=== PATIENT | male | born 1950 | race African-American/Black ===

== ENCOUNTER 2018-12-24 10:01 | Emergency (ER) | payer SELFPAY ==
[~2018-12-24] VITALS: Ht 182.9 cm; Wt 85.7 kg
[2018-12-24 10:08] VITALS: BP_SYST 108
--- NOTE | 2018-12-24 10:25 | NUR ---
Patient to ER bed 7 to gown for evaluation. Side rails up. Report given to Abhijit AUSTIN.
--- NOTE | 2018-12-24 10:32 | NUR ---
ER Dr. duval at bedside examining patient.
--- NOTE | 2018-12-24 10:36 | NUR ---
PATIENT CAME IN COMPLAINING OF LEFT ARM NUMBNESS THAT STARTED THIS MORNING AT 0700. PATIENT ABLE TO MOVE ARM AND LEGS BUT RIGHT LEG WEAKER. PATIENT NOT COMPLAINING OF PAIN OR SOB. PATIENT CRYING IN BED BECAUSE HE THINKS HE IS GOING TO . PATIENT ALERT AND ORIENTED X4.
--- NOTE | 2018-12-24 10:45 | NUR ---
# 20 gauge angiocath placed to LEFT FA. Use of asceptic technique. Opsite placed over site. Blood return noted. Blood for lab drawn from site. Flushed with 10 cc of normal saline. No evidence of infiltration noted. Patient tolerated well.
--- NOTE | 2018-12-24 11:01 | NUR ---
PATIENT LEAVING TO CT VIA GURNEY IN STABLE CONDITION.
[2018-12-24 11:06] LABS: BASOPHILS % (AUTO) 0.3 % (0.0-2.0); EOSINOPHILS # (AUTO) 0.1 K/uL (0.0-0.4); EOSINOPHILS % (AUTO) 2.7 % (0.0-4.0); HEMATOCRIT 40.8 % (36-54); HEMOGLOBIN 13.5 g/dL (14.0-18.0); LYMPHOCYTES # (AUTO) 1.8 K/uL (1.0-5.5); LYMPHOCYTES % (AUTO) 37.2 % (20.5-51.5); MEAN CORPUSCULAR HEMOGLOBIN 26 pg (27-31); MEAN CORPUSCULAR HGB CONC 33 % (32-36); MEAN CORPUSCULAR VOLUME 78 fL (79.0-98.0); MONOCYTES # (AUTO) 0.5 K/uL (0.0-1.0); MONOCYTES % (AUTO) 9.9 % (1.7-9.3); NEUTROPHILS # (AUTO) 2.4 K/uL (1.8-7.7); NEUTROPHILS % (AUTO) 49.9 % (40.0-70.0); PLATELET COUNT (AUTO) 207 K/uL (130-430); RED BLOOD CELL COUNT(AUTO) 5.24 MIL/uL (4.2-6.2); RED CELL DISTRIBUTION WIDTH 16.1 % (9.0-15.0); WHITE BLOOD COUNT (AUTO) 4.8 K/uL (4.8-10.8)
[2018-12-24 11:17] LABS: CALCIUM 8.6 mg/dL (8.4-11.0); CHLORIDE 105 mmol/L (98-107); CREATININE 1.13 mg/dL (0.55-1.30); GFR AFRICAN AMERICAN 83 mL/min (>90); GLUCOSE 111 mg/dL (70-99); POTASSIUM 3.6 mmol/L (3.5-5.1); SODIUM SERUM 138 mmol/L (136-145); UREA NITROGEN, BLOOD 16 mg/dL (8-21)
[2018-12-24 11:22] LABS: ALANINE AMINOTRANSFERASE 20 U/L (12-78); ALBUMIN 3.4 g/dL (3.4-4.8); ASPARTATE AMINOTRANSFERASE 17 U/L (10-37); PROTHROMBIN TIME 9.8 SECS (9.5-12.5); TOTAL BILIRUBIN 0.5 mg/dL (0.0-1.0)
[2018-12-24 11:27] LABS: ANION GAP < 3 (5-15)
--- NOTE | 2018-12-24 11:34 | NUR ---
PATIENT BACK FROM RADIOLOGY IN STABLE CONDITION.
[2018-12-24] MEDS ORDERED: ASPIRIN 81 MG TAB.CHEW PO ONE (12:45)
--- NOTE | 2018-12-24 13:01 | NUR ---
PATIENT RESTING IN BED WITH NO SIGNS OF DISTRESS. PATIENT GIVEN ASPIRIN. PATIENT TOLERATED WELL. PATIENT HAS NO FURHTER NEEDS AT MOMENT. WILL CONTINUE TO MONITOR.
--- NOTE | 2018-12-24 14:32 | NUR ---
PATIENT RESTING IN BED WITH NO SIGNS OF DISTRESS. UPDATED PATIENT ON PLAN OF CARE. PATIENT HAS NO FURTHER NEEDS AT MOMENT. WILL CONTINUE TO MONITOR.
--- NOTE | 2018-12-24 14:53 | NUR ---
SPOKE TO JOSUE AT [facility] AND REPORT WAS GIVEN. [phone]
--- NOTE | 2018-12-24 15:12 | NUR ---
ENDORSED CARE TO NORMAN MARIEE.
--- NOTE | 2018-12-24 15:20 | NUR ---
pt states refusal to be transported to [facility] to recieve higher level of care. md notified
--- NOTE | 2018-12-24 15:25 | NUR ---
ED bedside explaining risks and benefits of refusing medical care and transfer, signing out against medical advice. pt states he would like to leave against medical advice and refuses further treatment.
[2018-12-24 15:48] VITALS: BP_SYST 117
--- NOTE | 2018-12-24 15:48 | NUR ---
Pt a/o x4, Patient does not wish to proceed with medical care recommended by . Patient given information related to possible complications, up to and including , which could occur as a result of leaving hospital at this time. Patient verbalizes understanding of risks involved leaving against medical advice. Patient has signed AMA form. Pt provided with to-go lunch, beverages, and water. Pt refused clothing resources. RUPERTO Louie of [place] contacted at [phone] and confirmed that she would be arranging transportation for patient if needed. Pt IV removed and bandaged, no signs of active bleeding. Pt wristband removed. Pt assisted to waiting room to wait for ride.
--- NOTE | 2018-12-24 15:48 | NUR ---
Note undone in EDM - 12/24/18 at 1642 by [email or web address] Patient does not wish to proceed with medical care recommended by . Patient given information related to possible complications, up to and including , which could occur as a result of leaving hospital at this time. Patient verbalizes understanding of risks involved leaving against medical advice. Patient has signed AMA form. Pt provided with to-go lunch, beverages, and water. Pt refused clothing resources. RUPERTO Louie of [place] contacted at [phone] and confirmed that she would be arranging transportation for patient if needed. Pt IV removed and bandaged, no signs of active bleeding. Pt wristband removed. Pt assisted to waiting room to wait for ride.
== END 2018-12-24 15:48 | disposition left against medical advice (07) ==
LOC: SED 10:01
DX: I63.9 Cerebral infarction, unspecified (principal); R53.1 Weakness; Z59.0 Homelessness
CPT/HCPCS: 36415; 70450-TC; 71045; 80053; 84484; 85025; 85610-TC; 85730-TC; 93005; 99291